=== PATIENT | female | born 1960 | race Caucasian/White ===

== ENCOUNTER 2017-03-11 18:50 | Inpatient (IN) | payer OTHER ==
[2017-03-11] MEDS ORDERED: morphine CARPU-JECT 2 MG/1 ML DISP.SYRIN IVPUSH ONE (19:53)
[2017-03-11] MEDS ORDERED: SODIUM CHLORIDE 0.9% 500 ML INFUS.BAG IV ONE (19:53)
--- NOTE | 2017-03-11 19:57 | PDOC ---
History of Present Illness - General History Source: Patient, Old Records Exam Limitations: No Limitations - History of Present Illness Initial Comments: 03/11/17 20:35 The patient is a 56 year old female with significant PMH of diabetes, hypertension, hyperlipidemia, and asthma, s/p kidney operations who presents to the ED with kidney pain and abdominal pain beginning approximately yesterday. She reports diffuse abdominal pain, with the pain being the most severe in the RUQ. She also notes bilateral flank pain, left worse than right. Patient reports bilateral lower extremity pain and swelling. Patient reports a subjective fever, nausea, and vomiting three times since yesterday. The patient notes slight pain during urination and urinary frequency, which she believes is due to increased fluid intake. Patient reports previously slipping on ice and hurting her vertebral column. Patient notes difficulty moving her right leg when getting out of her bed. She notes an adverse reaction to prednisone. The patient denies chest pain, shortness of breath, headache and dizziness. Denies chills, diarrhea and constipation. The patient is primarily Chinese-speaking. Allergies: NKDA Past surgical history: Kidney operations, Colonoscopy, surgery for Gastritis. Social history: No reported alcohol, cigarette, or drug use. PCP: Dr. Maurer <Eric García - Last Filed: 03/12/17 00:39> <Brenna Koenig - Last Filed: 03/12/17 04:55> - General Chief Complaint: Pain, Acute Stated Complaint: URINARY PROBLEM/SWOLLEN LEGS Time Seen by Provider: 03/11/17 19:27 Past History <Eric García - Last Filed: 03/12/17 00:39> - Past Medical History Anemia: No Asthma: Yes Cancer: No Cardiac Disorders: No CVA: No COPD: No CHF: No Dementia: No Diabetes: Yes GI Disorders: Yes (bleeding ulcers) Disorders: Yes (h/o kidney stones) HTN: Yes Hypercholesterolemia: Yes Liver Disease: No Seizures: No Thyroid Disease: No - Surgical History Abdominal Surgery: (OVARY REMOVED) Appendectomy: No Cardiac Surgery: No Cholecystectomy: No Gastric Stapling: No GI Surgery: No Lung Surgery: Yes Neurologic Surgery: No Orthopedic Surgery: No - Immunization History Immunization Up to Date: Yes - Psycho/Social/Smoking Cessation Hx Anxiety: No Suicidal Ideation: No Smoking Status: No Smoking History: Never smoked Number of Cigarettes Smoked Daily: 0 Hx Alcohol Use: No Drug/Substance Use Hx: No Substance Use Type: None Hx Substance Use Treatment: No <Brenna Koenig - Last Filed: 03/12/17 04:55> - Past Medical History Allergies/Adverse Reactions: Allergies Allergy/AdvReac Type Severity Reaction Status Date / Time No Known Allergies Allergy Verified 03/11/17 18:58 Home Medications: Ambulatory Orders Insulin Glargine,Hum.rec.anlog [Lantus (10mL VIAL)] 40 units SQ HS 03/22/13 Cyclobenzaprine HCl [Flexeril] 5 mg PO TID PRN #10 tablet 11/21/14 Metformin HCl [Metformin HCl ER] 1,000 mg PO BID 11/21/14 Naproxen [Naprosyn -] 500 mg PO BID PRN #14 tablet 11/21/14 Oxycodone HCl/Acetaminophen [Percocet 5-325 mg Tablet -] 1 combo PO Q6H PRN #9 tablet MDD 4 02/24/16 Review of Systems - Review of Systems Comments:: 03/11/17 20:36 CONSTITUTIONAL: (+)Fever. Absent: chills, diaphoresis, generalized weakness, malaise, loss of appetite HEENT: Absent: rhinorrhea, nasal congestion, throat pain, throat swelling, difficulty swallowing, mouth swelling, ear pain, eye pain, visual Changes CARDIOVASCULAR: Absent: chest pain, syncope, palpitations, irregular heart rate, lightheadedness , peripheral edema RESPIRATORY: Absent: cough, shortness of breath, dyspnea with exertion, orthopnea, wheezing, stridor, hemoptysis GASTROINTESTINAL: (+) Diffuse abdominal pain. (+) Nausea, (+) Vomiting Absent: abdominal distension, diarrhea, constipation, melena, hematochezia GENITOURINARY: (+)Slight dysuria, (+)Urinary frequency Absent: urgency, hesitancy, hematuria, flank pain, genital pain MUSCULOSKELETAL: (+)Bilateral lower extremity swelling. Absent: myalgia, arthralgia SKIN: Absent: rash, itching, pallor HEMATOLOGIC/IMMUNOLOGIC: Absent: easy bleeding, easy bruising, lymphadenopathy, frequent infections ENDOCRINE: Absent: unexplained weight gain, unexplained weight loss, heat intolerance, cold intolerance NEUROLOGIC: Absent: headache, focal weakness or paresthesias, dizziness, unsteady gait, seizure, mental status changes, bladder or bowel incontinence PSYCHIATRIC: Absent: anxiety, depression, suicidal or homicidal ideation, hallucinations. 03/12/17 00:40 <Eric García - Last Filed: 03/12/17 00:39> *Physical Exam - Vital Signs Last Vital Signs Temp Pulse Resp BP Pulse Ox 98.7 F 97 H 19 153/69 100 03/11/17 18:58 03/11/17 18:58 03/11/17 18:58 03/11/17 18:58 03/11/17 18:58 - Physical Exam Comments: 03/11/17 20:38 GENERAL: Well developed, well nourished. Awake and alert. (+)Patient appears in moderate distress. HEENT: Normocephalic, atraumatic. PERRLA, EOMI. No conjunctival pallor. Sclera are non-icteric. Moist mucous membranes. Oropharynx is clear. NECK: Supple. Full ROM. No JVD. Carotid pulses 2+ and symmetric, without bruits. No thyromegaly. No lymphadenopathy. CARDIOVASCULAR: Regular rate and rhythm. No murmurs, rubs, or gallops. Distal pulses are 2+ and symmetric. PULMONARY: No evidence of respiratory distress. Lungs clear to auscultation bilaterally. No wheezing, rales or rhonchi. ABDOMINAL: (+)Minimal tenderness to palpation (right worse than left). (+) Rebound. Non-distended. No guarding. No organomegaly. Normoactive bowel sounds. MUSCULOSKELETAL: (+)Diffuse bilateral flank pain (left worse than right) Normal range of motion at all joints. No bony deformities or tenderness. No midline tenderness. EXTREMITIES: (+)Minimal bilateral lower extremity pitting edema. No cyanosis. No clubbing. SKIN: (+)Small lipoma scar on right shoulder Warm and dry. Normal capillary refill. No rashes. No jaundice. NEUROLOGICAL: Alert, awake, appropriate. Cranial nerves 2-12 intact. No deficits to light touch and temperature in face, upper extremities and lower extremities. No motor deficits in the in face, upper extremities and lower extremities. Normoreflexic in the upper and lower extremities. Normal speech. Toes are downgoing bilaterally. PSYCHIATRIC: Cooperative. Good eye contact. Appropriate mood and affect. <Eric García - Last Filed: 03/12/17 00:39> - Vital Signs Last Vital Signs Temp Pulse Resp BP Pulse Ox 98.7 F 97 H 19 153/69 100 03/11/17 18:58 03/11/17 18:58 03/11/17 18:58 03/11/17 18:58 03/11/17 18:58 <Brenna Koenig - Last Filed: 03/12/17 04:55> ED Treatment Course - LABORATORY CBC & Chemistry Diagram: 03/11/17 20:15 03/11/17 20:15 - Medications Given in the ED: ED Medications Discontinued Medications Generic Name Dose Route Start Last Admin Trade Name Janna PRN Reason Stop Dose Admin Morphine Sulfate 2 mg 03/11/17 19:53 03/11/17 20:10 Morphine Injection - IVPUSH 03/11/17 19:54 2 mg ONCE ONE Administration Sodium Chloride 250 ml 03/11/17 19:53 03/11/17 20:10 Normal Saline - IV 03/11/17 19:54 250 ml ONCE ONE Administration <Eric García - Last Filed: 03/12/17 00:39> - LABORATORY CBC & Chemistry Diagram: 03/11/17 20:15 03/11/17 20:15 - RADIOLOGY Radiology Studies Ordered: Category Date Time Status SPIRAL- RENAL-STONE CT [CT] Stat CT Scan 03/11/17 19:53 Ordered CHEST PA & LAT [RAD] Stat Radiology 03/11/17 19:46 Ordered DUPLEX VASCUL US-2LEGS [US] Stat Ultrasound 03/11/17 19:56 Ordered <Brenna Koenig - Last Filed: 03/12/17 04:55> Medical Decision Making - Medical Decision Making 03/12/17 00:41 Patient Name: Eun Hutchins This is a preliminary report by imaging recreational assistant Exam: CT lumbar spine without contrast Images: 409 Clinical indication: Unable to move the right leg. Nerve compression. Reformatted coronal and sagittal images were provided. Findings: The bone mineralization appears normal. The vertebral body heights are preserved. Degenerative displaced narrowing is noted and appears most severe at L2-L3. There straightening of normal lumbar lordosis. Anatomic alignment of the lumbar spine is maintained. A broad posterior disc bulge is noted at L2-L3. The disc extends into the neural foramina bilaterally. No other significant disc herniations are identified. Impression: Broad posterior disc bulge at L2-L3 with probable compression of the exiting nerve roots. THIS DOCUMENT HAS BEEN ELECTRONICALLY SIGNED 03/12/17 04:53 Pt tells me once all her labs are back that she has been having worsening leg pain bilaterally; right side >>left side. SHe tells me that she has weakness in the left leg and that she has difficulty walking when she wakes up in the middle of the night to go to the bathroom. Her right leg striaght leg test is negative for radiation of pain down the back of her leg, but she has pain at thsi right hip. Pt will be admitted for this worsening leg pain that has been evolving over the past 24-48 hrs. <Brenna Koenig - Last Filed: 03/12/17 04:55> *DC/Admit/Observation/Transfer - Attestations Scribe Attestion: 03/11/17 20:39 Documentation prepared by Eric García, acting as biomedical engineering aide for Brenna Koenig MD. <Eric García - Last Filed: 03/12/17 00:39> - Discharge Dispostion Admit: Yes <Brenna Koenig - Last Filed: 03/12/17 04:55> Diagnosis at time of Disposition: Difficulty walking, Leg numbness, Bulging lumbar disc - Discharge Dispostion Condition at time of disposition: Guarded
[2017-03-11] MEDS ORDERED: morphine CARPU-JECT 4 MG/1 ML DISP.SYRIN ONE (19:59)
[2017-03-11 20:37] LABS: BASOPHIL 0.6 % (0-2.0); EOSINOPHIL 2.1 % (0-4.5); MCH 27.9 pg (25.7-33.7); MEAN CELL VOLUME 84.6 fl (80-96); MEAN PLT VOLUME 9.3 fl (7.5-11.1); NEUTROPHILS 57.2 % (42.8-82.8); PLATELET COUNT 236 K/MM3 (134-434); RDW 14.5 % (11.6-15.6); WHITE BLOOD COUNT 6.5 K/mm3 (4.0-10.0)
[2017-03-11 20:57] LABS: INR 0.99 (0.82-1.09); PROTHROMBIN TIME (PATIENT) 10.9 SEC (9.98-11.88)
[2017-03-11 21:10] LABS: ALBUMIN 3.9 g/dl (3.4-5.0); ANION GAP 8 (8-16); BILIRUBIN,TOTAL 0.4 mg/dL (0.2-1.0); CALCIUM 9.2 mg/dL (8.5-10.1); CO2 27 mmol/L (21-32); CREATININE 0.8 mg/dL (0.55-1.02); GLUCOSE,RANDOM 97 mg/dL (74-106); SGOT/AST 11 U/L (15-37); SGPT/ALT 19 U/L (12-78); TOT PROT 7.1 g/dl (6.4-8.2)
[2017-03-11 21:11] LABS: ALK PHOS 106 U/L (45-117)
[2017-03-11 23:16] LABS: URINE APPEARANCE CLEAR; URINE BILIRUBIN NEGATIVE (NEGATIVE); URINE BLOOD NEGATIVE (NEGATIVE); URINE COLOR STRAW; URINE GLUCOSE (UA) NEGATIVE (NEGATIVE); URINE KETONE NEGATIVE (NEGATIVE); URINE LEUK ESTERASE NEGATIVE (NEGATIVE); URINE NITRITE NEGATIVE (NEGATIVE); URINE PROTEIN NEGATIVE (NEGATIVE); URINE UROBILINOGEN NEGATIVE mg/dL (0.2-1.0)
[2017-03-11] MEDS ORDERED: KETOROLAC TROMETHAMINE 30 MG/1 ML VIAL IVPUSH ONE (23:58)
[2017-03-12] MEDS ORDERED: KETOROLAC TROMETHAMINE 30 MG/1 ML VIAL ONE (00:08)
--- NOTE | 2017-03-12 01:02 | HP ---
Admitting History and Physical - Past Medical History ...LMP: 09/15/12 - Smoking History Smoking history: Never smoked Aproximately how many cigarettes per day: 0 - Alcohol/Substance Use Hx Alcohol Use: No Home Medications - Allergies Allergies/Adverse Reactions: Allergies Allergy/AdvReac Type Severity Reaction Status Date / Time No Known Allergies Allergy Verified 03/11/17 18:58 - Home Medications Home Medications: Ambulatory Orders Insulin Glargine,Hum.rec.anlog [Lantus (10mL VIAL)] 40 units SQ HS 03/22/13 Cyclobenzaprine HCl [Flexeril] 5 mg PO TID PRN #10 tablet 11/21/14 Metformin HCl [Metformin HCl ER] 1,000 mg PO BID 11/21/14 Naproxen [Naprosyn -] 500 mg PO BID PRN #14 tablet 11/21/14 Oxycodone HCl/Acetaminophen [Percocet 5-325 mg Tablet -] 1 combo PO Q6H PRN #9 tablet MDD 4 02/24/16 Physical Examination Vital Signs: Vital Signs Temperature 98.7 F 03/11/17 18:58 Pulse Rate 97 H 03/11/17 18:58 Respiratory Rate 19 03/11/17 18:58 Blood Pressure 153/69 03/11/17 18:58 O2 Sat by Pulse Oximetry (%) 98 03/11/17 19:35 Labs: CBC, BMP 03/11/17 20:15 03/11/17 20:15
--- NOTE | 2017-03-12 01:56 | HP ---
CHIEF COMPLAINT: back pain, difficulty walking HISTORY OF PRESENT ILLNESS: 54 yr old [place] speaking woman with DM, asthma, PUD, nephrolithiasis, HLD, chronic lower back pain and hx of falls. For the past week she has been having worsening back pain, intermittent burning like sensation, that radiates to her upper back/abdomen and down her legs, worse with movement, with no alleviating factors. Pain is worse in her right lower back and associated with diffuse headache and 3 episodes of non-bloody/nonbilous vomiting yesterday and one episode today. for past week she has been having intermittent subjective fevers which was at its worst last night. For past 2 months she has had b/l lower extremity edema. She had a mechanical fall in her bathroom last week and has been unable to walk up stairs for past 3 days. She used to use a cane for walking but recently the cane has caused her pain in the right hand so she stopped using it. Last night she could not sleep due to the pain. As a child she used to fall often onto her back. Denies syncope, loss of muscle tone, urinary and bowel incontinence. interview conducted with assistance of surinamese speaking staff member(medical oncologist in ED) ER course was notable for: (1) lumbar/abd/pelvis CT (2) cxy Recent Travel: none, denies tick bites PAST MEDICAL HISTORY: IDDM, asthma, hx of nephrolithiasis, HLD, chronic lower back pain(occuring for 15 yrs) hx of multiple falls PAST SURGICAL HISTORY: Social History: Smoking: denies Alcohol: denies Drugs: denies Family History: multiple members with HTN and DM, cousin with cancer Allergies No Known Allergies Allergy (Verified 03/11/17 18:58) HOME MEDICATIONS: Home Medications Medication Instructions Recorded Insulin Glargine,Hum.rec.anlog 40 units SQ HS 03/22/13 [Lantus (10mL VIAL)] Cyclobenzaprine HCl [Flexeril] 5 mg PO TID PRN #10 tablet 11/21/14 Metformin HCl [Metformin HCl ER] 1,000 mg PO BID 11/21/14 Naproxen [Naprosyn -] 500 mg PO BID PRN #14 tablet 11/21/14 Oxycodone HCl/Acetaminophen 1 combo PO Q6H PRN #9 tablet MDD 4 02/24/16 [Percocet 5-325 mg Tablet -] REVIEW OF SYSTEMS CONSTITUTIONAL: Present: fever, chills, Absent: diaphoresis, generalized weakness, malaise, loss of appetite, weight change HEENT: Present: occasional difficulty swallowing to both solid foods and water - no significant foods that exacerbate Absent: rhinorrhea, nasal congestion, throat pain, throat swelling, mouth swelling, ear pain, eye pain, visual changes CARDIOVASCULAR: Present: peripheral edema Absent: chest pain, syncope, palpitations, irregular heart rate, lightheadedness , RESPIRATORY: Present: cough, shortness of breath, Absent: dyspnea with exertion, orthopnea, wheezing, stridor, hemoptysis GASTROINTESTINAL: Present: vomiting, Absent: abdominal pain, abdominal distension, nausea, diarrhea, constipation, melena, hematochezia GENITOURINARY: Present: frequency (chronic) Absent: dysuria, urgency, hesitancy, hematuria, flank pain, genital pain MUSCULOSKELETAL: Present: back pain, Absent: myalgia, arthralgia, joint swelling, neck pain SKIN: Absent: rash, itching, pallor NEUROLOGIC: Present: headache, unsteady gait, Absent:focal weakness or paresthesias, dizziness, seizure, mental status changes, bladder or bowel incontinence PHYSICAL EXAMINATION Vital Signs - 24 hr 03/11/17 03/11/17 18:58 19:35 Temperature 98.7 F Pulse Rate 97 H Respiratory 19 Rate Blood Pressure 153/69 O2 Sat by Pulse 100 98 Oximetry (%) GENERAL: Awake, alert, and fully oriented, in discomfort. she did not want to sit up or turn to either side. HEAD: Normal with no signs of trauma. EYES: Pupils equal, round and reactive to light, extraocular movements intact, sclera anicteric, conjunctiva clear. No lid lag. EARS, NOSE, THROAT: Ears normal, nares patent, oropharynx clear without exudates. Moist mucous membranes. NECK: Normal range of motion, supple without lymphadenopathy, JVD, or masses. LUNGS: anteriorly Breath sounds equal, clear to auscultation bilaterally. No wheezes, and no crackles. No accessory muscle use. HEART: Regular rate and rhythm, normal S1 and S2 without murmur, rub or gallop. ABDOMEN: obese, Soft, nontender, not distended, normoactive bowel sounds, no guarding, no rebound, no masses. No hepatomegaly or splenomegaly. MUSCULOSKELETAL: No bony deformities or tenderness. No CVA tenderness. UPPER EXTREMITIES: 2+ pulses, warm, well-perfused. No cyanosis. No clubbing. No peripheral edema. LOWER EXTREMITIES: 2+ pulses, warm, well-perfused. No calf tenderness. b/l 1+ edema L>R NEUROLOGICAL: Cranial nerves II-XII intact. Normal speech. facial symmetry, sensation intact: b/l arms anteriorly, palms/dorsum of hands, dorsal and ventral feet. FROM b/l elbows/wrists/MCP/PCP and DIP joints. tender at left index MCP joint without effusion. brudinski's negative(no meningeal signs) motor: shoulder abduction/adduction, flexion and extension intact. hip extension on left and right limited due to pain, worse on right hip as she could not get it off the bed secondary to spams in her right groin. hip extension on left limited. would not bend at knees or dorsi/planar flexion. was able to move all toes freely. Laboratory Results - last 24 hr 03/11/17 03/11/17 03/11/17 20:15 20:15 20:15 WBC 6.5 RBC 3.85 Hgb 10.7 Hct 32.5 MCV 84.6 MCH 27.9 MCHC 33.0 RDW 14.5 Plt Count 236 MPV 9.3 Neutrophils % 57.2 Lymphocytes % 31.3 Monocytes % 8.8 Eosinophils % 2.1 Basophils % 0.6 INR 0.99 Sodium 141 Potassium 4.0 Chloride 106 Carbon Dioxide 27 Anion Gap 8 BUN 11 D Creatinine 0.8 D Creat Clearance w eGFR > 60 Random Glucose 97 Calcium 9.2 Total Bilirubin 0.4 D AST 11 L D ALT 19 D Alkaline Phosphatase 106 B-Natriuretic Peptide Total Protein 7.1 Albumin 3.9 Urine Color Urine Appearance Urine pH Urine Protein Urine Glucose (UA) Urine Ketones Urine Blood Urine Nitrite Urine Bilirubin Urine Urobilinogen Ur Leukocyte Esterase 03/11/17 03/11/17 20:15 23:05 WBC RBC Hgb Hct MCV MCH MCHC RDW Plt Count MPV Neutrophils % Lymphocytes % Monocytes % Eosinophils % Basophils % INR Sodium Potassium Chloride Carbon Dioxide Anion Gap BUN Creatinine Creat Clearance w eGFR Random Glucose Calcium Total Bilirubin AST ALT Alkaline Phosphatase B-Natriuretic Peptide 212.45 H Total Protein Albumin Urine Color Straw Urine Appearance Clear Urine pH 7.0 D Urine Protein Negative Urine Glucose (UA) Negative Urine Ketones Negative Urine Blood Negative Urine Nitrite Negative Urine Bilirubin Negative Urine Urobilinogen Negative Ur Leukocyte Esterase Negative ASSESSMENT/PLAN: 56 yr old surinamese speaking woman with hx of chronic back pain presents with intractable lower back pain placed on observation for pain control MRI to evaluate stenosis. - pt has had MRI 03/2016, 09/2013 mild disc bulge at L2-L3 with loss of disc space - will need to call pharmacy in the morning to confirm meds - pt's not at goal for DM, would likely benefit from lisinopril if not on it currently #intractable Lower back pain - morphine 2mg IVPush 4qhr prn - motrin 600mg po q6h [place] - gabapentin 100mg TID [place] - percocet 5/325 q6hr prn - pt used to follow with pain management in [address] [place] [address] but pt was not clear as why she stopped going - PT evaluation to assess gait, recommend rehab if needed - MRI w/o contrast to evaluate/compare stenosis - monitor neurological exam once pain is under control - currently no sensory deficits in lower extremities/no loss of muscle tone, no bowel or urinary incontinence, however unable to assess for spinal tenderness or gait #IDDM II - NISS, BGM ACHS - A1c DvT: heparin bid sq Diet: low sodium, diabetic Visit type - Emergency Visit Emergency Visit: Yes ED Registration Date: 03/11/17 Care time: The patient presented to the Emergency Department on the above date and was hospitalized for further evaluation of their emergent condition. - New Patient This patient is new to me today: Yes Date on this admission: 03/11/17 - Critical Care Critical Care patient: No
[2017-03-12] MEDS ORDERED: morphine CARPU-JECT 2 MG/1 ML DISP.SYRIN IVPUSH PRN (01:59)
[2017-03-12] MEDS ORDERED: morphine CARPU-JECT 4 MG/1 ML DISP.SYRIN IVPUSH PRN (02:01)
--- NOTE | 2017-03-12 02:10 | PN ---
Teaching Attending Note Name of Resident: Heidi Tyson ATTENDING PHYSICIAN STATEMENT I saw and evaluated the patient. I reviewed the resident's note and discussed the case with the resident. I agree with the resident's findings and plan as documented. SUBJECTIVE: 56 yo obese, female presents to ED with complaint of generalized pain including abdomen, flanks, back, and lower extremities. She denies any urinary or bowel incontinence. Her medical history reveals chronic back pain following prior traumatic fall years ago but reports worsening over the past week without having any knowledge of inciting event. OBJECTIVE: - Vital Signs Temp: 98.7F BP: 153/69 HR: 97 RR: 19 spO2: 98% on RA - Physical Examination General: Obese female in obvious discomfort HEENT: No oropharyngeal lesions noted Neck:No JVD or thyromegaly CV: RRR, S1 and S2 Pulm: CTA anteriorly Abd: Diffusely TTP w/ RUQ being most severe ( c/w ED evaluation ); BS + Ext: Trace edema bilaterally, Symmetrical appearing Neuro: CN grossly intact, DTR's +2/4 in upper and lower extremities, No appreciable sensory deficit but motor exam not tolerated 2/2 pain - Imaging CT L-Spine reviewed ( L2-L3 posterior bulge w/ probable compression on exiting nerve root ) CT A/P reviewed ( Unchanged from prior CT 05/2014, stable adrenal incidentaloma ) CXR PA/Lateral reviewed ( No infiltrate or edema, no occult fractures appreciated to chest wall ) LE Dopplers reviewed ( Negative for DVT bilateral LE ) - Labs Renal Function, electrolytes, UA wnl H/H: 10.7/32.5 BNP elevated at 212.45 ASSESSMENT Intractable Lumbar Pain Weakness Lower Extremities Abdominal Pain DM-II Essential HTN Dyslipidemia Mild Asthma Obesity PLAN Observation admission to med/surg for inpatient pain management Motrin 800mg q6h standing ; Oxycodone 5mg q4h standing ; Morphine 2mg q2h prn severe pain Start Gabapentin 100mg TID SSI regimen ; Check A1c Order MRI for today to further evaluate nerve compression Attempt to confirm outpatient medication regimen and resume UDS not performed in ED and likely of no benefit at this point given she has already rec. Morphine in ED DISPOSITION Anticipate discharge in <48h if pain better controlled and no emergent indication for neurosurgical intervention. May benefit from PT/OT evaluation if able to be assessed given patient inability to ambulate or use stairs at her home.
[2017-03-12] MEDS ORDERED: IBUPROFEN 600 MG TABLET (FP) PO PRN ×2 (02:15→08:30)
[2017-03-12] MEDS ORDERED: IBUPROFEN 600 MG TABLET (FP) PO SCH (02:15)
[2017-03-12 03:22] VITALS: BMI 36.2
[2017-03-12] MEDS: GABAPENTIN 100 MG CAPSULE (FP) PO SCH ×3 (06:28→22:04)
[2017-03-12] MEDS ORDERED: PNEUMOC 13-VAL CONJ-DIP CRM/PF 0.5 ML DISP.SYRIN IM ONE (07:08)
[2017-03-12] MEDS ORDERED: PNEUMOCOCCAL 23 VACCINE 0.5 ML VIAL IM ONE (08:45)
--- NOTE | 2017-03-12 09:25 | PN ---
Progress Note (short form) - Note Progress Note: pt resting comfortable, sleeping in bed. when she was woken up by me started crying out in excruciating pain. states no relief in pain for 3 days. no improvement with medication received in the Er. states she fell at home because the pain was so bad. denies CP, SOB, fever,chills, bowel/bladder incontinence. was seeing aircraft painter but stopped seeing many months ago Current Medications Generic Name Dose Route Start Last Admin Trade Name Freq PRN Reason Stop Dose Admin Gabapentin 100 mg 03/12/17 06:00 03/12/17 06:28 Neurontin - PO 100 mg TID JESENIA Administration Heparin Sodium (Porcine) 5,000 unit 03/12/17 10:00 Heparin - SQ BID JESENIA Ibuprofen 600 mg 03/12/17 08:30 Motrin - PO Q6H PRN Insulin Aspart 1 vial 03/12/17 11:00 Novolog Vial Sliding Scale - SQ ACHS [facility] Protocol Morphine Sulfate 2 mg 03/12/17 02:01 Morphine Injection - IVPUSH Q4H PRN BACK PAIN Oxycodone/Acetaminophen 1 combo 03/12/17 02:01 Percocet 5/325 - PO Q6H PRN PAIN Last Vital Signs Temp Pulse Resp BP Pulse Ox 98.2 F 62 18 116/63 98 03/12/17 06:34 03/12/17 06:34 03/12/17 06:34 03/12/17 06:34 03/12/17 05:38 General NAD CV S1 S2 RRR no murmur/rub/gallop extremities reflexes intact, decreased ROM due to pain (unclear if pain radiating to the groin or lower back but pt pointed to groin) +muscles spasm sacral area R>L, sensation in B/L LE grossly intact. shuffling gait CBCD WBC 6.5 K/mm3 (4.0-10.0) 03/11/17 20:15 RBC 3.85 M/mm3 (3.60-5.2) 03/11/17 20:15 Hgb 10.7 GM/dL (10.7-15.3) 03/11/17 20:15 Hct 32.5 % (32.4-45.2) 03/11/17 20:15 MCV 84.6 fl (80-96) 03/11/17 20:15 MCHC 33.0 g/dl (32.0-36.0) 03/11/17 20:15 RDW 14.5 % (11.6-15.6) 03/11/17 20:15 Plt Count 236 K/MM3 (134-434) 03/11/17 20:15 MPV 9.3 fl (7.5-11.1) 03/11/17 20:15 CMP Sodium 141 mmol/L (136-145) 03/11/17 20:15 Potassium 4.0 mmol/L (3.5-5.1) 03/11/17 20:15 Chloride 106 mmol/L (98-107) 03/11/17 20:15 Carbon Dioxide 27 mmol/L (21-32) 03/11/17 20:15 Anion Gap 8 (8-16) 03/11/17 20:15 BUN 11 mg/dL (7-18) D 03/11/17 20:15 Creatinine 0.8 mg/dL (0.55-1.02) D 03/11/17 20:15 Creat Clearance w eGFR > 60 (>60) 03/11/17 20:15 Calcium 9.2 mg/dL (8.5-10.1) 03/11/17 20:15 Total Bilirubin 0.4 mg/dL (0.2-1.0) D 03/11/17 20:15 AST 11 U/L (15-37) L D 03/11/17 20:15 ALT 19 U/L (12-78) D 03/11/17 20:15 Alkaline Phosphatase 106 U/L (45-117) 03/11/17 20:15 Total Protein 7.1 g/dl (6.4-8.2) 03/11/17 20:15 Albumin 3.9 g/dl (3.4-5.0) 03/11/17 20:15 A/P 56yo F wtih PMH morbid obesity, DM ,asthma, nephrolithasis, chronic back pain c/o intractable back pain after mechanical fall 1. Intractable back pain- concerned as pt states she fell leading to back pain. awaiting read of CT lumbar/sacral spine done in the ER. has hx of L2-L3 disc bulge. MRI ordered to see if progresses. will start flexeril for muscle spasms. cont morphine/oxy for pain. PT assessment to evlauate if requires KIRSTEN vs home PT. 2. morbid obesity-BMI 36 counseled on need to loose weight as may be contributing factor to chronic pain. importance of leaving 1lb/week. bariatric referral as outpatient. 3. DM-iss, bgm achs. will start levemir once ensure eating diet. (has not eaten since arrival) 4. asthma- no signs of acute exacerbation 5. dispo pending improvement in pain and results of imaging studies Visit type - Emergency Visit Emergency Visit: Yes ED Registration Date: 03/12/17 Care time: The patient presented to the Emergency Department on the above date and was hospitalized for further evaluation of their emergent condition. - New Patient This patient is new to me today: Yes Date on this admission: 03/12/17 - Critical Care Critical Care patient: No - Discharge Referral Referred to [facility] Med P.C.: No
[2017-03-12] MEDS: HEPARIN NA (PORCINE) 5,000 UNITS/ML 1ML VIAL SQ SCH ×2 (11:46→22:00)
[2017-03-12] MEDS: INSULIN SLIDING SCALE (NOVOLOG) 1 VIAL SQ SCH ×3 (11:46→22:06)
[2017-03-12] MEDS: oxyCODONE HCL 5 MG TABLET PO PRN ×2 (12:03→22:00)
[2017-03-12] MEDS: ACETAMINOPHEN 325 MG TABLET (FP) PO PRN ×2 (12:03→22:01)
--- NOTE | 2017-03-12 13:27 | EKG ---
Test Reason : Blood Pressure : / mmHG Vent. Rate : 093 BPM Atrial Rate : 093 BPM P-R Int : 142 ms QRS Dur : 080 ms QT Int : 350 ms P-R-T Axes : 045 016 031 degrees QTc Int : 435 ms NORMAL SINUS RHYTHM NORMAL ECG WHEN COMPARED WITH ECG OF 14-MAY-2014 17:35, NO SIGNIFICANT CHANGE WAS FOUND Confirmed by DEANDRE HURST MD ([id number]) on 03/12/2017 1:26:57 PM Referred By: Confirmed By:DEANDRE HURST MD
[2017-03-12] MEDS: CYCLOBENZAPRINE HCL 10 MG TABLET (FP) PO PRN ×2 (13:30→22:04)
[2017-03-12] MEDS ORDERED: INSULIN (NOVOLOG) ASPART 100 UNITS/ML 10ML VIAL ONE ×2 (17:59→22:06)
[2017-03-13] MEDS: GABAPENTIN 100 MG CAPSULE (FP) PO SCH ×2 (06:18→13:26)
[2017-03-13] MEDS: ACETAMINOPHEN 325 MG TABLET (FP) PO PRN (06:18)
[2017-03-13] MEDS: oxyCODONE HCL 5 MG TABLET PO PRN (06:18)
[2017-03-13] MEDS: INSULIN SLIDING SCALE (NOVOLOG) 1 VIAL SQ SCH ×2 (06:20→11:56)
[2017-03-13] MEDS: HEPARIN NA (PORCINE) 5,000 UNITS/ML 1ML VIAL SQ SCH (10:30)
--- NOTE | 2017-03-13 11:14 | DS ---
Physical Exam: SUBJECTIVE: Patient seen and examined. pain improved. able to ambulate without difficulty. no CP, SOB, fever, chills, N/V/C/D OBJECTIVE: Vital Signs Period Temp Pulse Resp BP Sys/Roca Pulse Ox Last 24 Hr 98.0 F-98.8 F 92-99 18-18 109-132/58-79 98 PHYSICAL EXAM GENERAL: The patient is awake, alert, and fully oriented, in no acute distress. HEAD: Normal with no signs of trauma. EYES: PERRL, extraocular movements intact, sclera anicteric, conjunctiva clear. ENT: Ears normal, nares patent, oropharynx clear without exudates, moist mucous membranes. NECK: Trachea midline, full range of motion, supple. LUNGS: Breath sounds equal, clear to auscultation bilaterally, no wheezes, no crackles, no accessory muscle use. HEART: Regular rate and rhythm, S1, S2 without murmur, rub or gallop. ABDOMEN: Soft, nontender, nondistended, normoactive bowel sounds, no guarding, no rebound, no hepatosplenomegaly, no masses. EXTREMITIES: 2+ pulses, warm, well-perfused, no edema. NEUROLOGICAL: Cranial nerves II through XII grossly intact. Normal speech, gait not observed. PSYCH: Normal mood, normal affect. SKIN: Warm, dry, normal turgor, no rashes or lesions noted. LABS Laboratory Results - last 24 hr 03/12/17 03/12/17 03/12/17 11:44 17:16 21:58 POC Glucometer 115 161 174 Hemoglobin A1c % 03/13/17 03/13/17 06:17 09:45 POC Glucometer 127 Hemoglobin A1c % 8.1 H HOSPITAL COURSE: Date of Admission:03/12/17 Date of Discharge: 03/13/17 Admission- intractable back pain Pre hospital course 54 yr old Chinese speaking woman with DM, asthma, PUD, nephrolithiasis, HLD, chronic lower back pain and hx of falls. For the past week she has been having worsening back pain, intermittent burning like sensation, that radiates to her upper back/abdomen and down her legs, worse with movement, with no alleviating factors. Pain is worse in her right lower back and associated with diffuse headache and 3 episodes of non-bloody/nonbilous vomiting yesterday and one episode today. for past week she has been having intermittent subjective fevers which was at its worst last night. For past 2 months she has had b/l lower extremity edema. She had a mechanical fall in her bathroom last week and has been unable to walk up stairs for past 3 days. She used to use a cane for walking but recently the cane has caused her pain in the right hand so she stopped using it. Last night she could not sleep due to the pain. As a child she used to fall often onto her back. Denies syncope, loss of muscle tone, urinary and bowel incontinence. interview conducted with assistance of peruvian speaking staff member(medical insurance verifier in ED) subsequent hospital course medicine observation. imaging studies showed significant arthritic changes and disc bulge at L2-L3 but not worsening since MRI of 2016. pain controlled with percocet and flexeril. evaluated by PT. would benefit from PT. d/c home with pain medications and instruction to follow up for outpatient PT. also instructed on necessity to loose weight. bariatric referral made. Insulin held in hospital due to controlled sugars. instructed to follow sugars closely and bring bgm log to PMD appt next week for further instruction. A1c 8.1. and will likely require further adjustment controlled substance percocet 5/325 q6H prn #12tabs sent without istop being checked as system is currently down and unable to access Minutes to complete discharge: 40 Discharge Summary Reason For Visit: NUMBNESS OF LOWER EXTREMITY,BULGING OF LUMBAR IN- Current Active Problems Bulging lumbar disc (Acute) Difficulty walking (Acute) Leg numbness (Acute) Diabetes (Chronic) Obesity (BMI 30-39.9) (Chronic) Condition: Guarded - Instructions Diet, Activity, Other Instructions: You were observed in the hospital due to your worsening pain. MRI studies shows severe arthritis of the spine. It also showed disc bulge at L1-L2 but it has not worsened since last year. Continue to take pain medications as prescribed. these medications can make you drowsy so do not drive or operate heavy machinery while taking these medications. They can also cause constipation so ensure you are having a bowel movement every day while taking. Take medications on as prescribed. You would benefit from physical therapy. If you do not improve with physical therapy discuss with your primary care doctor about evaluation with a neurosurgeon for possible surgery. Your pain and overall health will also improve with diet and exercise. Continue to consider bariatric surgery as discussed. Referral for bariatric surgeon has been provided. Follow up with your primary care doctor this week. You need to re-evaluate your diabetic medications. You A1c (diabetic number) 8.1 and is above goal. Your sugars in the hospital were controlled so would continue to watch your sugars closely and discuss with your doctor about adjusting your medications. Record your fingersticks and bring it to your next doctors appointment. Continue your oral medications but continue to hold your insulin until you are seen by your primary care doctor. If you develop worsening pain not relieved wih pain medication or develop numbness or bowel incontinence return to the ER. Referrals: Joe Maurer MD [Non Staff, Medical] - John Velasquez MD [Staff Physician] - 1 Month (bariatric surgeon) - Home Medications Comprehensive Discharge Medication List: Ambulatory Orders Metformin HCl [Metformin HCl ER] 1,000 mg PO BID 11/21/14 Cyclobenzaprine HCl [Flexeril -] 5 mg PO TID PRN #9 tablet 03/13/17 Gabapentin [Neurontin -] 100 mg PO TID #90 cap 03/13/17 Oxycodone HCl/Acetaminophen [Percocet 5-325 mg Tablet] 1 combo PO Q6H PRN #12 tablet MDD 4 03/13/17 This patient is new to me today: No Emergency Visit: Yes ED Registration Date: 03/12/17 Care time: The patient presented to the Emergency Department on the above date and was hospitalized for further evaluation of their emergent condition. Critical Care patient: No - Discharge Referral Referred to [facility] Med P.C.: No
[2017-03-13 13:45] VITALS: BP 131/57; PULSE 94; TEMP 99
== END 2017-03-13 13:57 | disposition home or self-care (01) | DRG 347 ==
LOC: JER 18:50 → JERBED 03-12 01:42 → J8W 03-12 03:42
PROVIDERS: ADMIT Internal Medicine; ATTEND Internal Medicine
DX: M51.26 Other intervertebral disc displacement, lumbar region (principal); M54.5 Low back pain; E11.9 Type 2 diabetes mellitus without complications; Z79.4 Long term (current) use of insulin; E78.5 Hyperlipidemia, unspecified; Z68.36 Body mass index [BMI] 36.0-36.9, adult; E66.01 Morbid (severe) obesity due to excess calories; I10 Essential (primary) hypertension; J45.909 Unspecified asthma, uncomplicated; R20.0 Anesthesia of skin
CPT/HCPCS: 36415; 71020-TC; 72131-TC; 72148-TC; 74176; 80053; 81003; 83036; 83880; 85025; 85610; 87040; 87086; 87186; 90732; 93005; 93010; 93970-TC; 97116-GP; 97161-GP; 99285-25; G0009; J1644

== ENCOUNTER 2017-03-26 12:19 | Emergency (ER) | payer OTHER ==
[2017-03-26 12:24] VITALS: BP 139/79; PULSE 109; TEMP 98.6; BMI 36.6
[2017-03-26] MEDS ORDERED: KETOROLAC TROMETHAMINE 30 MG/1 ML VIAL IVPUSH ONE (12:57)
[2017-03-26] MEDS ORDERED: ONDANSETRON 4 MG/2 ML VIAL IVPUSH ONE (12:57)
[2017-03-26] MEDS ORDERED: SODIUM CHLORIDE 1,000 ML IV STA (12:57)
[2017-03-26] MEDS ORDERED: ONDANSETRON 4 MG/2 ML VIAL ONE ×2 (13:03→13:04)
[2017-03-26] MEDS ORDERED: KETOROLAC TROMETHAMINE 30 MG/1 ML VIAL ONE (13:03)
[2017-03-26 13:29] LABS: BASOPHIL 0.8 % (0-2.0); EOSINOPHIL 2.5 % (0-4.5); MCH 27.4 pg (25.7-33.7); MCHC 32.5 g/dl (32.0-36.0); MEAN CELL VOLUME 84.2 fl (80-96); MEAN PLT VOLUME 9.5 fl (7.5-11.1); NEUTROPHILS 49.6 % (42.8-82.8); PLATELET COUNT 232 K/MM3 (134-434); WHITE BLOOD COUNT 5.1 K/mm3 (4.0-10.0)
--- NOTE | 2017-03-26 13:33 | PDOC ---
History of Present Illness - General Chief Complaint: Pain Stated Complaint: PAIN/ BACK, HEAD Time Seen by Provider: 03/26/17 12:50 History Source: Patient Exam Limitations: No Limitations - History of Present Illness Travel History: No Initial Comments: 03/26/17 13:03 56-year-old female with history of renal colic presents with right CVA tenderness that radiates to her right upper quadrant and flank area. Patient also complaining of nausea now associated vomiting this morning. Patient states has developed generalized throbbing headache due to the vomiting and decided come to the ER today. Patient denies change in urine pattern, fever, chills, lower abdominal pain, diarrhea or recent travel, recent illness. Timing/Duration: reports: constant, getting worse Quality: reports: sharpness Abdominal Pain Onset Location: reports: RUQ Pain Radiation: reports: back Activities at Onset: reports: none Aggravating Factors: improves with: None Alleviating Factors: improves with: None Past History - Travel Traveled outside of the country in the last 30 days: No Close contact w/someone who was outside of country & ill: No - Past Medical History Allergies/Adverse Reactions: Allergies Allergy/AdvReac Type Severity Reaction Status Date / Time No Known Allergies Allergy Verified 03/26/17 12:24 Home Medications: Ambulatory Orders Metformin HCl [Metformin HCl ER] 1,000 mg PO BID 11/21/14 Cyclobenzaprine HCl [Flexeril -] 5 mg PO TID PRN #9 tablet 03/13/17 Gabapentin [Neurontin -] 100 mg PO TID #90 cap 03/13/17 Oxycodone HCl/Acetaminophen [Percocet 5-325 mg Tablet] 1 combo PO Q6H PRN #12 tablet MDD 4 03/13/17 Anemia: No Asthma: Yes Cancer: No Cardiac Disorders: No CVA: No COPD: No CHF: No Dementia: No Diabetes: Yes GI Disorders: Yes (bleeding ulcers) Disorders: Yes (h/o kidney stones) HTN: Yes Hypercholesterolemia: Yes Liver Disease: No Seizures: No Thyroid Disease: No - Surgical History Abdominal Surgery: (OVARY REMOVED) Appendectomy: No Cardiac Surgery: No Cholecystectomy: No Gastric Stapling: No GI Surgery: No Lung Surgery: Yes Neurologic Surgery: No Orthopedic Surgery: No - Immunization History Immunization Up to Date: Yes - Psycho/Social/Smoking Cessation Hx Anxiety: No Suicidal Ideation: No Smoking Status: No Smoking History: Never smoked Number of Cigarettes Smoked Daily: 0 Hx Alcohol Use: No Drug/Substance Use Hx: No Substance Use Type: None Hx Substance Use Treatment: No Patient Lives Alone: No Lives with/in: spouse/SO Review of Systems - Review of Systems Able to Perform ROS?: Yes Constitutional: No: Symptoms Reported HEENTM: No: Symptoms Reported Respiratory: No: Symptoms reported Cardiac (ROS): No: Symptoms Reported ABD/GI: Yes: Nausea, Vomiting : Yes: Flank Pain Musculoskeletal: No: Symptoms Reported Integumentary: No: Symptoms Reported Neurological: Yes: Headache. No: Weakness, Dizziness Endocrine: No: Symptoms Reported *Physical Exam - Vital Signs Last Vital Signs Temp Pulse Resp BP Pulse Ox 98.6 F 109 H 20 139/79 99 03/26/17 12:20 03/26/17 12:20 03/26/17 12:20 03/26/17 12:20 03/26/17 12:20 - Physical Exam General Appearance: Yes: Nourished, Appropriately Dressed. No: Apparent Distress HEENT: positive: EOMI, TJ, TMs Normal, Pharynx Normal. negative: Pale Conjunctivae Neck: negative: Tender, Supple, Decreased range of motion Respiratory/Chest: positive: Lungs Clear, Normal Breath Sounds. negative: Respiratory Distress, Accessory Muscle Use Cardiovascular: positive: Regular Rhythm, Tachycardia. negative: Murmur Gastrointestinal/Abdominal: positive: Normal Bowel Sounds, Soft, Guarding ( right side), Tenderness (right upper quadrant right flank. Negative Shaikh's). negative: Rebound, Mass, Hepatomegaly Musculoskeletal: positive: CVA Tenderness (R) Extremity: positive: Normal Capillary Refill. negative: Pedal Edema Integumentary: positive: Normal Color, Warm, Moist. negative: Rash Neurologic: positive: Motor Strength 5/5 ( ambulatory) ED Treatment Course - LABORATORY CBC & Chemistry Diagram: 03/26/17 13:01 03/26/17 13:01 - Medications Given in the ED: ED Medications Discontinued Medications Generic Name Dose Route Start Last Admin Trade Name Freq PRN Reason Stop Dose Admin Ketorolac Tromethamine 30 mg 03/26/17 12:57 03/26/17 13:01 Toradol Injection - IVPUSH 03/26/17 12:58 30 mg ONCE ONE Administration Ondansetron HCl 4 mg 03/26/17 12:57 03/26/17 13:02 Zofran Injection IVPUSH 03/26/17 12:58 4 mg ONCE ONE Administration Medical Decision Making - Medical Decision Making 03/26/17 13:36 Patient with CVA tenderness radiating to her right upper quadrant. Patient with history of renal colic. Patient on exam has CVA tenderness along with noted tachycardia and triage. Patient ordered for fluids, labs, urine and will order imaging once labs are resulted. 03/26/17 15:55 Renal ultrasound shows no sonographic abnormality identified. There is no signs of calculus or hydronephrosis. Patient will be discharged home to follow up with her PCP 03/26/17 15:55 Laboratory Tests 03/26/17 03/26/17 03/26/17 13:01 13:01 14:10 WBC 5.1 Hgb 11.0 Hct 33.9 Plt Count 232 Neutrophils % 49.6 Sodium 140 Potassium 4.2 Chloride 103 Carbon Dioxide 28 Anion Gap 9 BUN 18 D Creatinine 0.7 Creat Clearance w eGFR > 60 Random Glucose 119 H D Calcium 9.3 Magnesium 2.2 Total Bilirubin 0.7 D AST 24 D ALT 23 D Alkaline Phosphatase 103 Total Protein 7.5 Albumin 3.0 L D Total Amylase 43 Lipase 73 Urine Ketones Trace H Urine Nitrite Negative Ur Leukocyte Esterase Negative patient states feeling better. 03/26/17 15:57 *DC/Admit/Observation/Transfer Diagnosis at time of Disposition: Back pain Qualifiers: Back pain location: low back pain Chronicity: acute Back pain laterality: right Sciatica presence: without sciatica Qualified Code(s): M54.5 - Low back pain - Discharge Dispostion Disposition: HOME Condition at time of disposition: Good - Referrals Referrals: Joe Maurer MD [Primary Care Provider] - - Patient Instructions Printed Discharge Instructions: DI for Low Back Pain Additional Instructions: Please follow-up with your PCP and discuss today's visit. May take Tylenol or Motrin for discomfort. Please return to ED if symptoms worsen.
[2017-03-26 13:51] LABS: ALK PHOS 103 U/L (45-117); AMYLASE 43 U/L (25-115); ANION GAP 9 (8-16); BILIRUBIN,TOTAL 0.7 mg/dL (0.2-1.0); CALCIUM 9.3 mg/dL (8.5-10.1); CO2 28 mmol/L (21-32); CREATININE 0.7 mg/dL (0.55-1.02); GLUCOSE,RANDOM 119 mg/dL (74-106); TOT PROT 7.5 g/dl (6.4-8.2)
[2017-03-26 13:57] LABS: SGPT/ALT 23 U/L (12-78)
[2017-03-26 13:58] LABS: MAGNESIUM 2.2 mg/dL (1.8-2.4); SGOT/AST 24 U/L (15-37)
[2017-03-26 14:21] LABS: URINE APPEARANCE SLCLOUDY; URINE BILIRUBIN NEGATIVE (NEGATIVE); URINE BLOOD NEGATIVE (NEGATIVE); URINE COLOR YELLOW; URINE GLUCOSE (UA) NEGATIVE (NEGATIVE); URINE KETONE TRACE (NEGATIVE); URINE LEUK ESTERASE NEGATIVE (NEGATIVE); URINE NITRITE NEGATIVE (NEGATIVE); URINE PROTEIN NEGATIVE (NEGATIVE); URINE UROBILINOGEN NEGATIVE mg/dL (0.2-1.0)
== END 2017-03-26 16:38 | disposition home or self-care (01) ==
LOC: JER 12:19
PROC: 3E0333Z Introduction of Anti-inflammatory into Peripheral Vein, Percutaneous Approach (ICD-10-PCS; principal; 2017-03-26)
PROC: 3E033GC Introduction of Other Therapeutic Substance into Peripheral Vein, Percutaneous Approach (ICD-10-PCS; 2017-03-26)
DX: M54.5 Low back pain (principal); I10 Essential (primary) hypertension; E11.9 Type 2 diabetes mellitus without complications; Z79.84 Long term (current) use of oral hypoglycemic drugs; E78.00 Pure hypercholesterolemia, unspecified; Z87.442 Personal history of urinary calculi
CPT/HCPCS: 36415; 76775-TC; 80053; 81003; 82150; 83690; 83735; 85025; 87086; 96374; 96375; 99283-25

== ENCOUNTER 2020-10-16 05:51 | Emergency (ER) | payer OTHER ==
[2020-10-16 06:28] VITALS: BMI 32.0
[2020-10-16] MEDS ORDERED: LACTATED RINGERS SOLUTION 1,000 ML/1,000 ML INFUS.BAG IV STA (07:52)
[2020-10-16] MEDS ORDERED: ACETAMINOPHEN 500 MG TABLET (FP) PO ONE (07:52)
[2020-10-16] MEDS ORDERED: ACETAMINOPHEN 325 MG TABLET (FP) ONE (08:21)
[2020-10-16 08:37] LABS: BASO % 0.5 % (0-2.0); EOS % 2.1 % (0-4.5); HEMATOCRIT 35.3 % (32.4-45.2); HEMOGLOBIN 11.3 GM/dL (10.7-15.3); LYMPH % 40.5 % (8-40); MCH 25.1 pg (25.7-33.7); MCHC 32.1 g/dl (32.0-36.0); MEAN CELL VOLUME 78.1 fl (80-96); MEAN PLT VOLUME 8.9 fl (7.5-11.1); MONO % 9.6 % (3.8-10.2); NEUT % 47.3 % (42.8-82.8); PLATELET COUNT 278 K/MM3 (134-434); RBC 4.51 M/mm3 (3.60-5.2); RDW 15.4 % (11.6-15.6); WHITE BLOOD COUNT 6.5 K/mm3 (4.0-10.0)
[2020-10-16 08:59] LABS: POTASSIUM 3.9 mmol/L (3.5-5.1)
[2020-10-16 09:02] LABS: CALCIUM 9.7 mg/dL (8.5-10.1)
[2020-10-16 09:03] LABS: ALBUMIN 3.9 g/dl (3.4-5.0); BLOOD UREA NITROGEN 14.2 mg/dL (7-18); MAGNESIUM 2.2 mg/dL (1.8-2.4)
[2020-10-16 09:06] LABS: CREATININE 0.7 mg/dL (0.55-1.3)
[2020-10-16 09:08] LABS: BILIRUBIN,TOTAL 0.4 mg/dL (0.2-1); TOT PROT 7.4 g/dl (6.4-8.2)
[2020-10-16 09:30] LABS: URINE APPEARANCE TURBID; URINE BILIRUBIN NEGATIVE (NEGATIVE); URINE COLOR YELLOW; URINE GLUCOSE (UA) NEGATIVE (NEGATIVE); URINE KETONE TRACE (NEGATIVE)
[2020-10-16 09:31] LABS: EPI CELLS 4.7 /uL (0-25.1); HYALINE CASTS 0.64 /uL (0-3.1); URINE BACTERIA 7015.8 /uL (0-1359); URINE LEUK ESTERASE 4+ (NEGATIVE); URINE NITRITE NEGATIVE (NEGATIVE); URINE PROTEIN 1+ (NEGATIVE); URINE RBC 14.5 /uL (0-23.9); URINE UROBILINOGEN 0.2 mg/dL (0.2-1.0); URINE WBC 5531.3 /uL (0-25.8)
[2020-10-16 09:32] LABS: URINE CRYSTALS NON SEEN /hpf
[2020-10-16] MEDS ORDERED: CEFTRIAXONE 1,000 MG in DEXTROSE 5%-WATER - 50 ML IVPB ONE (09:57)
[2020-10-16] MEDS ORDERED: CIPROFLOXACIN 400 MG/D5W 400 MG/200 ML IVPB IVPB ONE (10:02)
[2020-10-16] MEDS ORDERED: PT OWN MED DRAWER 7, Y5N ONE (11:11)
[2020-10-16 11:54] VITALS: BP 149/75; PULSE 84; TEMP 98.6
== END 2020-10-16 11:56 | disposition home or self-care (01) ==
LOC: JER 05:51
DX: N30.01 Acute cystitis with hematuria (principal)
CPT/HCPCS: 36415; 74176-TC; 80053; 81003; 83735; 85025; 87086; 87186; 93005; 93010; 99285-25

== ENCOUNTER 2021-10-05 04:25 | Day surgery (SDC) | payer OTHER ==
[2021-10-01 17:47] VITALS: BMI 31.1
[2021-10-05] MEDS ORDERED: MIDAZOLAM HCL 2 MG/2 ML SINGLE DOSE VIAL ONE (12:44)
[2021-10-05 14:42] VITALS: BP 133/70; PULSE 81; TEMP 98
== END 2021-10-05 14:35 | disposition home or self-care (01) ==
LOC: JASU-SURG 04:25
PROVIDERS: ATTEND Urology
PROC: 0TF3XZZ Fragmentation in Right Kidney Pelvis, External Approach (ICD-10-PCS; principal; 2021-10-05 12:00)
DX: N20.0 Calculus of kidney (principal)
CPT/HCPCS: 82962

== ENCOUNTER 2023-05-10 12:48 | Emergency (ER) | payer OTHER ==
[2023-05-10 12:55] VITALS: BP 165/89; PULSE 92; RESP 16; TEMP 98.2; BMI 32.1
[2023-05-10] MEDS ORDERED: LIDOCAINE 5% TOPICAL PATCH TP ONE (13:44)
[2023-05-10] MEDS ORDERED: ACETAMINOPHEN 500 MG TABLET (FP) PO ONE (13:44)
[2023-05-10] MEDS ORDERED: KETOROLAC TROMETHAMINE 30 MG/1 ML VIAL IM ONE (13:44)
[2023-05-10] MEDS ORDERED: LIDOCAINE 4% PATCH TP ONE (13:55)
[2023-05-10] MEDS ORDERED: KETOROLAC TROMETHAMINE 30 MG/1 ML VIAL ONE (13:55)
[2023-05-10] MEDS ORDERED: ACETAMINOPHEN 500 MG TABLET (FP) ONE (13:56)
[2023-05-10] MEDS ORDERED: LIDOCAINE PATCH REMOVAL MC ONE (22:00)
== END 2023-05-10 14:47 | disposition home or self-care (01) ==
LOC: JERFT 12:48
PROC: 3E0233Z Introduction of Anti-inflammatory into Muscle, Percutaneous Approach (ICD-10-PCS; principal; 2023-05-10)
DX: M54.9 Dorsalgia, unspecified (principal); G89.29 Other chronic pain
CPT/HCPCS: 99284-25

== ENCOUNTER 2023-07-18 09:37 | Emergency (ER) | payer OTHER ==
[2023-07-18 09:44] VITALS: BMI 29.2
[2023-07-18] MEDS ORDERED: SODIUM CHLORIDE 1,000 ML IV STA (10:53)
[2023-07-18] MEDS ORDERED: ACETAMINOPHEN 1000 MG/100 ML BAG IVPB ONE (10:53)
[2023-07-18] MEDS ORDERED: FAMOTIDINE 20 MG/50 ML IVPB 20 MG/50 ML MG IVPB ONE ×2 (10:53→11:39)
[2023-07-18] MEDS ORDERED: ONDANSETRON 4 MG/2 ML VIAL IVPUSH ONE (10:53)
[2023-07-18] MEDS ORDERED: MAG HYDROX/AL HYDROX/SIMETH 30 ML UNIT-DOSE CUP PO ONE (10:54)
[2023-07-18 11:35] LABS: VENOUS BASE EXCESS -1.7 mmol/L (-2-2); VENOUS PCO2 42.2 mmHg (38-52); VENOUS PH 7.366 (7.310-7.410)
[2023-07-18 11:36] LABS: BASO % 0.9 % (0-2.0); EOS % 1.4 % (0-4.5); HEMATOCRIT 39.2 % (32.4-45.2); HEMOGLOBIN 12.4 GM/dL (10.7-15.3); LYMPH % 36.4 % (8-40); MCH 24.8 pg (25.7-33.7); MCHC 31.5 g/dl (32.0-36.0); MEAN CELL VOLUME 78.5 fl (80-96); MEAN PLT VOLUME 8.6 fl (7.5-11.1); NEUT % 54.3 % (42.8-82.8); PLATELET COUNT 297 10^3/uL (134-434); RDW 16.2 % (11.6-15.6); WHITE BLOOD COUNT 7.4 K/mm3 (4.0-10.0)
[2023-07-18] MEDS ORDERED: MAG HYDROX/AL HYDROX/SIMETH 30 ML UNIT-DOSE CUP ONE (11:39)
[2023-07-18] MEDS ORDERED: ONDANSETRON 4 MG/2 ML VIAL ONE (11:39)
[2023-07-18] MEDS ORDERED: ACETAMINOPHEN INJECTION 100 ML IVPB ONE (11:39)
[2023-07-18 11:49] LABS: URINE APPEARANCE CLEAR; URINE BILIRUBIN NEGATIVE (NEGATIVE); URINE COLOR YELLOW; URINE GLUCOSE (UA) 4+ (NEGATIVE)
[2023-07-18 11:50] LABS: EPI CELLS 3.2 /uL (0-25.1); PH,URINE 5.5 (5.0-8.0); URINE BACTERIA 7.7 /uL (0-1359); URINE KETONE 15 mg/dl (NEGATIVE); URINE LEUK ESTERASE NEGATIVE (NEGATIVE); URINE NITRITE NEGATIVE (NEGATIVE); URINE PROTEIN NEGATIVE (NEGATIVE); URINE RBC 15.5 /uL (0-23.9); URINE UROBILINOGEN 0.2 mg/dL (0.2-1.0); URINE WBC 18.1 /uL (0-25.8)
[2023-07-18 12:01] LABS: POTASSIUM 4.7 mmol/L (3.5-5.1)
[2023-07-18 12:03] LABS: CALCIUM 9.7 mg/dL (8.5-10.1)
[2023-07-18 12:04] LABS: BLOOD UREA NITROGEN 15.8 mg/dL (7-18)
[2023-07-18 12:06] LABS: BILIRUBIN,DIRECT 0.1 mg/dL (0.0-0.2)
[2023-07-18 12:08] LABS: BILIRUBIN,TOTAL 0.5 mg/dL (0.2-1); CREATININE 0.6 mg/dL (0.55-1.3); TOT PROT 7.6 g/dl (6.4-8.2)
[2023-07-18 14:29] VITALS: BP 149/72; PULSE 77; RESP 19; TEMP 98.7
== END 2023-07-18 14:40 | disposition home or self-care (01) ==
LOC: JER 09:37
PROC: 3E033GC Introduction of Other Therapeutic Substance into Peripheral Vein, Percutaneous Approach (ICD-10-PCS; principal; 2023-07-18)
PROC: 3E033NZ Introduction of Analgesics, Hypnotics, Sedatives into Peripheral Vein, Percutaneous Approach (ICD-10-PCS; 2023-07-18)
PROC: 3E033GC Introduction of Other Therapeutic Substance into Peripheral Vein, Percutaneous Approach (ICD-10-PCS; 2023-07-18)
DX: R50.9 Fever, unspecified (principal); R10.13 Epigastric pain; R09.89 Other specified symptoms and signs involving the circulatory and respiratory systems; J02.9 Acute pharyngitis, unspecified; R07.9 Chest pain, unspecified; R06.02 Shortness of breath; R11.10 Vomiting, unspecified; Z20.822 Contact with and (suspected) exposure to COVID-19
CPT/HCPCS: 0241U-QW; 36415; 71046-TC-FY; 74177-TC; 80053; 81003; 82248; 82550; 82803; 83605; 83690; 84484; 85025; 87086; 99285-25; Q9967

== ENCOUNTER 2023-07-26 04:38 | Day surgery (SDC) | payer OTHER ==
[2023-07-22 14:34] VITALS: BMI 31.1
[~2023-07-26 04:38] MED LIST: BUPIVACAINE HCL/PF 0.75% 10 ML VIAL NR ONE; LIDOCAINE HCL 1% PRESERVATIVE FREE - 30ML VIAL IJ ONE
[2023-07-26] MEDS ORDERED: LIDOCAINE HCL/PF 1% SDV 5ML VIAL ONE ×2 (07:09→07:39)
[2023-07-26] MEDS ORDERED: TRIAMCINOLONE ACET 40MG/1ML VIAL ONE (07:09)
[2023-07-26] MEDS ORDERED: BUPIVACAINE HCL/PF 0.5% (5MG/ML) 10 ML VIAL ONE (07:09)
[2023-07-26] MEDS ORDERED: BUPIVACAINE HCL/PF 0.75% 10 ML VIAL ONE (07:39)
[2023-07-26] MEDS ORDERED: LIDOCAINE HCL 1% PRESERVATIVE FREE - 30ML VIAL IJ ONE ×2 (09:18)
[2023-07-26] MEDS ORDERED: BUPIVACAINE HCL/PF 0.75% 10 ML VIAL NR ONE (09:24)
[2023-07-26 09:52] VITALS: BP 137/53; PULSE 87; RESP 16; TEMP 98.4
[2023-07-26] MEDS ORDERED: ACETAMINOPHEN 500 MG TABLET (FP) PO PRN (11:22)
== END 2023-07-26 09:50 | disposition home or self-care (01) ==
LOC: JASU-SURG 04:38
PROVIDERS: ATTEND Pain Medicine Pain Medicine
PROC: 3E0T33Z Introduction of Anti-inflammatory into Peripheral Nerves and Plexi, Percutaneous Approach (ICD-10-PCS; 2023-07-26)
PROC: 3E0T3BZ Introduction of Anesthetic Agent into Peripheral Nerves and Plexi, Percutaneous Approach (ICD-10-PCS; principal; 2023-07-26 09:15)
DX: M47.816 Spondylosis without myelopathy or radiculopathy, lumbar region (principal)
CPT/HCPCS: 76000-TC-FY

== ENCOUNTER 2023-08-23 04:31 | Day surgery (SDC) | payer OTHER ==
[2023-08-18 10:52] VITALS: BMI 31.1
[2023-08-23] MEDS ORDERED: ACETAMINOPHEN 500 MG TABLET (FP) PO PRN (09:26)
[2023-08-23] MEDS ORDERED: BUPIVACAINE HCL/PF 0.75% 10 ML VIAL NR ONE (11:34)
[2023-08-23] MEDS ORDERED: LIDOCAINE 1% P/F 10 MG/ML VIAL INF ONE (11:34)
[2023-08-23 11:56] VITALS: BP 130/66; PULSE 92; RESP 20; TEMP 97.9
== END 2023-08-23 12:10 | disposition home or self-care (01) ==
LOC: JASU-SURG 04:31
PROVIDERS: ATTEND Pain Medicine Pain Medicine
PROC: 3E0T33Z Introduction of Anti-inflammatory into Peripheral Nerves and Plexi, Percutaneous Approach (ICD-10-PCS; 2023-08-23)
PROC: 3E0T3BZ Introduction of Anesthetic Agent into Peripheral Nerves and Plexi, Percutaneous Approach (ICD-10-PCS; principal; 2023-08-23 13:15)
DX: M47.816 Spondylosis without myelopathy or radiculopathy, lumbar region (principal)
CPT/HCPCS: 76000-TC-FY

== ENCOUNTER 2023-09-13 04:25 | Day surgery (SDC) | payer OTHER ==
[2023-09-13] MEDS ORDERED: LIDOCAINE HCL/PF 2% SDV 5ML VIAL ONE (07:36)
[2023-09-13] MEDS ORDERED: BUPIVACAINE HCL/PF 0.75% 10 ML VIAL ONE (07:37)
[2023-09-13] MEDS ORDERED: LIDOCAINE HCL/PF 1% SDV 5ML VIAL ONE (07:37)
[2023-09-13] MEDS: DEXAMETHASONE SOD PHOSPHATE 10 MG/1 ML VIAL IVPUSH ONE ×2 (10:22)
[2023-09-13] MEDS: LIDOCAINE 1% P/F 10 MG/ML VIAL INF ONE ×2 (10:22)
[2023-09-13] MEDS: BUPIVACAINE HCL/PF 0.75% 10 ML VIAL NR ONE ×2 (10:22)
[2023-09-13] MEDS: LIDOCAINE HCL 2% (50ML VIAL) INF ONE ×2 (10:22)
[2023-09-13 11:12] VITALS: BP 146/76; PULSE 90; RESP 16; TEMP 97.7
[2023-09-13] MEDS ORDERED: ACETAMINOPHEN 500 MG TABLET (FP) PO PRN (14:55)
== END 2023-09-13 11:40 | disposition home or self-care (01) ==
LOC: JASU-SURG 04:25
PROVIDERS: ATTEND Pain Medicine Pain Medicine
PROC: 015B3ZZ Destruction of Lumbar Nerve, Percutaneous Approach (ICD-10-PCS; principal; 2023-09-13 10:45)
DX: M47.816 Spondylosis without myelopathy or radiculopathy, lumbar region (principal)
CPT/HCPCS: 76000-TC-FY; J1100

== ENCOUNTER 2023-10-11 04:03 | Day surgery (SDC) | payer OTHER ==
[2023-10-05 15:44] VITALS: BMI 31.1
[2023-10-11] MEDS: DEXAMETHASONE SOD PHOSPHATE 10 MG/1 ML VIAL IM ONE
[2023-10-11] MEDS ORDERED: LIDOCAINE HCL/PF 1% SDV 5ML VIAL ONE (07:15)
[2023-10-11] MEDS ORDERED: DEXAMETHASONE SOD PHOSPHATE 10 MG/1 ML VIAL ONE (07:15)
[2023-10-11] MEDS ORDERED: BUPIVACAINE HCL/PF 0.75% 10 ML VIAL ONE (07:15)
[2023-10-11] MEDS ORDERED: LIDOCAINE HCL/PF 2% SDV 5ML VIAL ONE (07:15)
[2023-10-11] MEDS: LIDOCAINE HCL 1% PRESERVATIVE FREE - 30ML VIAL IJ ONE (10:50)
[2023-10-11] MEDS: BUPIVACAINE HCL/PF 0.75% 10 ML VIAL NR ONE ×2 (11:06)
[2023-10-11] MEDS: LIDOCAINE HCL/PF 2% SDV 5ML VIAL INF ONE ×2 (11:06)
[2023-10-11 12:15] VITALS: BP 126/70; PULSE 95; RESP 16; TEMP 98
[2023-10-11] MEDS ORDERED: ACETAMINOPHEN 500 MG TABLET (FP) PO PRN (12:23)
== END 2023-10-11 12:00 | disposition home or self-care (01) ==
LOC: JASU-SURG 04:03
PROVIDERS: ATTEND Pain Medicine Pain Medicine
PROC: 015B3ZZ Destruction of Lumbar Nerve, Percutaneous Approach (ICD-10-PCS; principal; 2023-10-11 09:30)
DX: M47.816 Spondylosis without myelopathy or radiculopathy, lumbar region (principal)
CPT/HCPCS: 76000-TC-FY; J1100

== ENCOUNTER 2023-12-06 04:20 | Day surgery (SDC) | payer OTHER ==
[2023-12-01 14:36] VITALS: BMI 28.1
[2023-12-06] MEDS ORDERED: BUPIVACAINE HCL/PF 0.5% (5MG/ML) 10 ML VIAL ONE (07:23)
[2023-12-06] MEDS ORDERED: TRIAMCINOLONE ACET 40MG/1ML VIAL ONE (07:23)
[2023-12-06] MEDS ORDERED: BUPIVACAINE HCL/PF 0.25% (2.5MG/ML) 10 ML VIAL ONE (07:23)
[2023-12-06] MEDS ORDERED: LIDOCAINE HCL/PF 1% SDV 5ML VIAL ONE (07:24)
[2023-12-06 08:23] VITALS: RESP 18
[2023-12-06] MEDS: BUPIVACAINE HCL/PF 0.5% (5MG/ML) 10 ML VIAL IJ ONE ×2 (09:30)
[2023-12-06] MEDS: TRIAMCINOLONE ACET 40MG/1ML VIAL IM ONE ×2 (09:30)
[2023-12-06] MEDS: LIDOCAINE HCL 1% PRESERVATIVE FREE - 30ML VIAL IJ ONE ×2 (09:30)
[2023-12-06] MEDS: IOHEXOL 180 MG/1 ML ML IJ ONE ×2 (09:30)
[2023-12-06 10:22] VITALS: BP 158/75; PULSE 80; TEMP 98.9
[2023-12-06] MEDS ORDERED: ACETAMINOPHEN 500 MG TABLET (FP) PO PRN (10:40)
== END 2023-12-06 09:58 | disposition home or self-care (01) ==
LOC: JASU-SURG 04:20
PROVIDERS: ATTEND Pain Medicine Pain Medicine
PROC: 3E0U3BZ Introduction of Anesthetic Agent into Joints, Percutaneous Approach (ICD-10-PCS; 2023-12-06)
PROC: 3E0U33Z Introduction of Anti-inflammatory into Joints, Percutaneous Approach (ICD-10-PCS; principal; 2023-12-06 10:15)
DX: M16.11 Unilateral primary osteoarthritis, right hip (principal)
CPT/HCPCS: 76000-TC-FY

== ENCOUNTER 2024-01-12 04:11 | Day surgery (SDC) | payer OTHER ==
[2024-01-06 16:18] VITALS: BMI 28.2
[2024-01-12] MEDS ORDERED: TRIAMCINOLONE ACET 40MG/1ML VIAL ONE ×2 (07:15→12:07)
[2024-01-12] MEDS ORDERED: BUPIVACAINE HCL/PF 0.5% (5MG/ML) 10 ML VIAL ONE (07:16)
[2024-01-12] MEDS ORDERED: LIDOCAINE HCL/PF 1% SDV 5ML VIAL ONE (07:16)
[2024-01-12 11:00] VITALS: RESP 18
[2024-01-12] MEDS: TRIAMCINOLONE ACETONIDE 40 MG/ML 10 ML VIAL IJ ONE (12:10)
[2024-01-12] MEDS: BUPIVACAINE HCL/PF 0.5% (5MG/ML) 10 ML VIAL IJ ONE (12:12)
[2024-01-12] MEDS: LIDOCAINE HCL 1% PRESERVATIVE FREE - 30ML VIAL IJ ONE (12:12)
[2024-01-12] MEDS: IOHEXOL 180 MG/1 ML ML IJ ONE (12:13)
[2024-01-12 12:30] VITALS: BP 154/72; PULSE 87; TEMP 97.1
[2024-01-12] MEDS ORDERED: ACETAMINOPHEN 500 MG TABLET (FP) PO PRN (15:54)
== END 2024-01-12 12:40 | disposition home or self-care (01) ==
LOC: JASU-SURG 04:11
PROVIDERS: ATTEND Pain Medicine Pain Medicine
PROC: 3E0U3BZ Introduction of Anesthetic Agent into Joints, Percutaneous Approach (ICD-10-PCS; 2024-01-12)
PROC: 3E0U33Z Introduction of Anti-inflammatory into Joints, Percutaneous Approach (ICD-10-PCS; principal; 2024-01-12 13:45)
DX: M53.3 Sacrococcygeal disorders, not elsewhere classified (principal)
CPT/HCPCS: 76000-TC-FY

== ENCOUNTER 2024-02-16 04:14 | Day surgery (SDC) | payer OTHER ==
[2024-02-13 16:38] VITALS: BMI 28.2
[2024-02-16 06:45] VITALS: RESP 16; TEMP 97.6
[2024-02-16] MEDS ORDERED: DEXAMETHASONE SOD PHOSPHATE 10 MG/1 ML VIAL ONE (07:09)
[2024-02-16] MEDS ORDERED: LIDOCAINE HCL/PF 1% SDV 5ML VIAL ONE (07:09)
[2024-02-16] MEDS: IOHEXOL 180 MG/1 ML ML IJ ONE ×2 (08:30)
[2024-02-16] MEDS: DEXAMETHASONE SOD PHOSPHATE 10 MG/1 ML VIAL IVPUSH ONE ×3 (08:30)
[2024-02-16] MEDS: LIDOCAINE HCL 1% PRESERVATIVE FREE - 30ML VIAL IJ ONE ×3 (08:30)
[2024-02-16 09:00] VITALS: BP 136/70; PULSE 88
[2024-02-16] MEDS ORDERED: ACETAMINOPHEN 500 MG TABLET (FP) PO PRN (15:25)
== END 2024-02-16 09:00 | disposition home or self-care (01) ==
LOC: JASU-SURG 04:14
PROVIDERS: ATTEND Pain Medicine Pain Medicine
PROC: 3E0R3BZ Introduction of Anesthetic Agent into Spinal Canal, Percutaneous Approach (ICD-10-PCS; 2024-02-16)
PROC: 3E0R33Z Introduction of Anti-inflammatory into Spinal Canal, Percutaneous Approach (ICD-10-PCS; principal; 2024-02-16 08:15)
DX: M48.061 Spinal stenosis, lumbar region without neurogenic claudication (principal); M54.16 Radiculopathy, lumbar region
CPT/HCPCS: 76000-TC-FY; J1100

== ENCOUNTER 2024-02-16 23:22 | Emergency (ER) | payer OTHER ==
[2024-02-16 23:31] VITALS: TEMP 97.6; BMI 29.6
[2024-02-17] MEDS ORDERED: FAMOTIDINE 20 MG/50 ML IVPB 20 MG/50 ML MG IVPB ONE (00:38)
[2024-02-17] MEDS ORDERED: ONDANSETRON 4 MG/2 ML VIAL ONE (00:38)
[2024-02-17] MEDS ORDERED: MAG HYDROX/AL HYDROX/SIMETH 30 ML UNIT-DOSE CUP ONE (00:38)
[2024-02-17] MEDS: SODIUM CHLORIDE 0.9% 500 ML INFUS.BAG IV ONE (01:05)
[2024-02-17] MEDS: ONDANSETRON 4 MG/2 ML VIAL IVPUSH ONE (01:05)
[2024-02-17] MEDS ORDERED: ACETAMINOPHEN INJECTION 100 ML IVPB ONE (01:09)
[2024-02-17] MEDS: MAG HYDROX/AL HYDROX/SIMETH 30 ML UNIT-DOSE CUP PO ONE (01:14)
[2024-02-17] MEDS: FAMOTIDINE 20 MG/50 ML IVPB 20 MG/50 ML MG IVPB ONE (01:14)
[2024-02-17] MEDS: ACETAMINOPHEN 1000 MG/100 ML BAG IVPB ONE (01:14)
[2024-02-17 01:39] LABS: BASO % 0.2 % (0-2.0); HEMATOCRIT 39.1 % (32.4-45.2); HEMOGLOBIN 12.5 GM/dL (10.7-15.3); LYMPH % 13.9 % (8-40); MCH 25.9 pg (25.7-33.7); MCHC 31.9 g/dl (32.0-36.0); MEAN CELL VOLUME 81.3 fl (80-96); MEAN PLT VOLUME 8.8 fl (7.5-11.1); MONO % 3.9 % (3.8-10.2); PLATELET COUNT 283 10^3/uL (134-434); RBC 4.81 M/mm3 (3.60-5.2); RDW 16.5 % (11.6-15.6); WHITE BLOOD COUNT 10.4 K/mm3 (4.0-10.0)
[2024-02-17 01:58] LABS: CALCIUM 9.3 mg/dL (8.5-10.1)
[2024-02-17 01:59] LABS: ALBUMIN 3.6 g/dl (3.4-5.0); BLOOD UREA NITROGEN 15.9 mg/dL (7-18)
[2024-02-17 02:02] LABS: CREATININE 0.9 mg/dL (0.55-1.3)
[2024-02-17 02:03] LABS: BILIRUBIN,TOTAL 0.5 mg/dL (0.2-1); TOT PROT 7.2 g/dl (6.4-8.2)
[2024-02-17 02:13] VITALS: PULSE 109
[2024-02-17 02:35] LABS: INR 0.92 (0.83-1.09); PROTHROMBIN TIME (PATIENT) 10.4 SEC (9.7-13.0)
[2024-02-17 02:38] LABS: ACTIVATED PTT 29.2 SECONDS (25.2-36.5)
[2024-02-17 03:10] VITALS: BP 143/70; RESP 16
[2024-02-17] MEDS ORDERED: morphine SULFATE 4 MG/ML VIAL ONE (03:11)
[2024-02-17] MEDS: morphine CARPU-JECT 4 MG/1 ML DISP.SYRIN IVPUSH ONE (03:21)
== END 2024-02-17 05:13 | disposition home or self-care (01) ==
LOC: JER 23:22
PROC: 3E033GC Introduction of Other Therapeutic Substance into Peripheral Vein, Percutaneous Approach (ICD-10-PCS; principal; 2024-02-17)
PROC: 3E033NZ Introduction of Analgesics, Hypnotics, Sedatives into Peripheral Vein, Percutaneous Approach (ICD-10-PCS; 2024-02-17)
PROC: 3E033NZ Introduction of Analgesics, Hypnotics, Sedatives into Peripheral Vein, Percutaneous Approach (ICD-10-PCS; 2024-02-17)
PROC: 3E033GC Introduction of Other Therapeutic Substance into Peripheral Vein, Percutaneous Approach (ICD-10-PCS; 2024-02-17)
DX: R07.89 Other chest pain (principal); K29.70 Gastritis, unspecified, without bleeding; R10.13 Epigastric pain
CPT/HCPCS: 36415; 71045-TC-FY; 80053; 84484; 85025; 85379; 85610; 85730; 93005; 93010; 96365; 96375; 99285-25; J0131

== ENCOUNTER 2024-03-22 04:11 | Day surgery (SDC) | payer OTHER ==
[2024-03-20 12:05] VITALS: BMI 28.2
[2024-03-22] MEDS ORDERED: LIDOCAINE HCL/PF 1% SDV 5ML VIAL ONE (07:31)
[2024-03-22] MEDS: LIDOCAINE HCL 1% PRESERVATIVE FREE - 30ML VIAL IJ ONE ×2 (09:12)
[2024-03-22 10:27] VITALS: BP 140/72; PULSE 76; RESP 18; TEMP 97.3
[2024-03-22] MEDS ORDERED: ACETAMINOPHEN 500 MG TABLET (FP) PO PRN (19:43)
== END 2024-03-22 10:26 | disposition home or self-care (01) ==
LOC: JASU-SURG 04:11
PROVIDERS: ATTEND Pain Medicine Pain Medicine
PROC: 01HY3MZ Insertion of Neurostimulator Lead into Peripheral Nerve, Percutaneous Approach (ICD-10-PCS; principal; 2024-03-22 09:00)
DX: G89.4 Chronic pain syndrome (principal); M54.50 Low back pain, unspecified
CPT/HCPCS: 64555; C1778; 76000-TC-FY

== ENCOUNTER 2025-05-03 05:28 | Day surgery (SDC) | payer OTHER ==
[2025-05-01 08:54] VITALS: BMI 30.2
[2025-05-03] MEDS ORDERED: BUPIVACAINE HCL/PF 0.75% 10 ML VIAL ONE (07:10)
[2025-05-03] MEDS ORDERED: BUPIVACAINE HCL/PF 0.5% (5MG/ML) 10 ML VIAL ONE (07:10)
[2025-05-03 07:35] VITALS: RESP 20
[2025-05-03] MEDS: LIDOCAINE HCL 1% PRESERVATIVE FREE - 30ML VIAL IJ ONE ×2 (08:06)
[2025-05-03] MEDS: LIDOCAINE HCL/PF 2% SDV 5ML VIAL INF ONE ×2 (08:07)
[2025-05-03] MEDS: BUPIVACAINE HCL/PF 0.5% (5MG/ML) 10 ML VIAL IJ ONE ×3 (08:15)
[2025-05-03] MEDS: DEXAMETHASONE SOD PHOSPHATE 10 MG/1 ML VIAL IVPUSH ONE ×2 (08:17)
[2025-05-03] MEDS ORDERED: ACETAMINOPHEN 500 MG TABLET (FP) PO PRN (08:41)
[2025-05-03 08:55] VITALS: BP 129/63; PULSE 93; TEMP 97.7
== END 2025-05-03 08:45 | disposition home or self-care (01) ==
LOC: JASU-SURG 05:28
PROVIDERS: ATTEND Pain Medicine Pain Medicine
PROC: 015B3ZZ Destruction of Lumbar Nerve, Percutaneous Approach (ICD-10-PCS; principal; 2025-05-03 08:15)
DX: M47.816 Spondylosis without myelopathy or radiculopathy, lumbar region (principal)
CPT/HCPCS: 76000-TC-FY; J1100